=== PATIENT | male | born 1955 | race African-American/Black ===

== ENCOUNTER 2023-06-22 16:11 | Emergency (ER) | payer BC, MEDICAID ==
[~2023-06-22] VITALS: Ht 167.6 cm; Wt 66.0 kg
[2023-06-22 16:23] VITALS: BP 135/82; PULSE 83; RESP 16; TEMP 98.9; O2SAT 99
[2023-06-22] MEDS ORDERED: OFLO5DRO4 LEFT EAR (20:42)
[2023-06-22] MEDS ORDERED: CARB-274 EACH EAR ×2 (20:42)
== END 2023-06-22 20:59 | disposition home or self-care (01) ==
LOC: ER 16:11
DX: H60.92 Unspecified otitis externa, left ear (principal); I10 Essential (primary) hypertension
CPT/HCPCS: 69210; 99284